=== PATIENT | male | born 1965 | race Caucasian/White ===

== ENCOUNTER 2017-08-27 12:21 | Emergency (ER) | payer BC ==
[2017-08-27 12:34] VITALS: BP 168/83; PULSE 108; RESP 20; TEMP 99.2; O2SAT 96
[2017-08-27 12:48] LABS: BILIRUBIN, URINE NEG (NEG); BLOOD, URINE TRACE (NEG); GLUCOSE,URINE NEG (NEG); KETONE, URINE NEG (NEG); NITRITE,URINE POS (NEG); PH, URINE 5.5 (5.0-8.5); URINE LEUKOCYTE ESTERASE LARGE (NEG)
[2017-08-27 12:57] LABS: BACTERIA, URINE MANY /hpf; SQUAMOUS EPITHELIAL CELL URINE 0-5 /hpf (0-5); URINE COLOR YELLOW (YELLW/STRAW)
[2017-08-27] MEDS ORDERED: AMLO2.5T PO (15:15)
[2017-08-27] MEDS ORDERED: HYDR12.57 PO (15:15)
[2017-08-27] MEDS ORDERED: ACIP20TA19 PO (15:15)
[2017-08-27] MEDS ORDERED: LISI2.5T3 PO (15:15)
[2017-08-27] MEDS ORDERED: SULFAMETHOXAZOLE-TRIMETHOPRIM DS 800-160 MG TAB PO ONE (15:30)
[2017-08-27] MEDS ORDERED: BACT800T5 PO (15:33)
--- NOTE | 2017-08-27 15:33 | PD ---
HPI Chief Complaint: Complaint Time Seen by Provider: 15:25 Travel History International Travel<30 days: No Contact w/Intl Traveler<30days: No Traveled to known affect area: No History of Present Illness HPI This 51-year-old male complaining of possible UTI. He has had urinary tract infections in the past. He has had urinary retention. 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 He has had recurrent bladder infections and says he usually responds well to Bactrim his been having frequency and dysuria. There has not been any vomiting. PFSH Past Medical History Diminished Hearing: No GERD: Yes Hypertension: Yes Tetanus Vaccination: < 5 Years Influenza Vaccination: No Past Surgical History Genitourinary Surgery: Yes (bladder ) Social History Alcohol Use: Yes (occ) Tobacco Use: No Substance Use: No Allergies-Medications (Allergen,Severity, Reaction): Coded Allergies: pseudoephedrine (Verified Allergy, Unknown, 08/27/17) Reported Meds & Prescriptions Reported Meds & Active Scripts Active Reported Aciphex (Rabeprazole Sodium) 20 Mg Tab 20 Mg PO DAILY Amlodipine (Amlodipine Besylate) 2.5 Mg Tab 2.5 Mg PO DAILY Hydrochlorothiazide 12.5 Mg Cap 12.5 Mg PO DAILY Lisinopril 2.5 Mg Tab 2.5 Mg PO DAILY Review of Systems General / Constitutional: No: Fever, Chills Eyes: No: Diploplia HENT: No: Headaches Cardiovascular: No: Chest Pain or Discomfort, Palpitations Gastrointestinal: No: Nausea, Vomiting Genitourinary: Positive: Urgency, Frequency, Dysuria Skin: No Rash Neurologic: No: Dizziness, Syncope Endocrine: No: Heat Intolerance Hematologic/Lymphatic: No: Easy Bruising Physical Exam Narrative GENERAL: Well-developed male SKIN: Focused skin assessment warm/dry. HEAD: Atraumatic. Normocephalic. EYES: Pupils equal and round. No scleral icterus. No injection or drainage. ENT: No nasal bleeding or discharge. Mucous membranes pink and moist. NECK: Trachea midline. No JVD. CARDIOVASCULAR: Regular rate and rhythm. No murmur appreciated. RESPIRATORY: No accessory muscle use. Clear to auscultation. Breath sounds equal bilaterally. GASTROINTESTINAL: Abdomen soft, non-tender, nondistended. Hepatic and splenic margins not palpable. MUSCULOSKELETAL: No obvious deformities. No clubbing. No cyanosis. No edema. NEUROLOGICAL: Awake and alert. No obvious cranial nerve deficits. Motor grossly within normal limits. Normal speech. PSYCHIATRIC: Appropriate mood and affect; insight and judgment normal. Data Data Last Documented VS Vital Signs Date Time Temp Pulse Resp B/P (MAP) Pulse Ox O2 Delivery O2 Flow Rate FiO2 08/27/17 15:11 18 08/27/17 12:34 99.2 108 168/83 (111) 96 Orders Orders Urinalysis - C+S If Indicated (08/27/17 12:34) Urine Culture (08/27/17 12:40) Sulfamet-Trimeth Ds 800-160 Mg (Bactrim (08/27/17 15:30) Labs Laboratory Tests Test 08/27/17 12:40 Urine Color YELLOW Urine Turbidity CLOUDY Urine pH 5.5 Urine Specific [place] 1.015 Urine Protein NEG mg/dL Urine Glucose (UA) NEG mg/dL Urine Ketones NEG mg/dL Urine Occult Blood TRACE Urine Nitrite POS Urine Bilirubin NEG Urine Leukocyte Esterase LARGE Urine RBC 3-5 /hpf Urine WBC 50-99 /hpf Urine Squamous Epithelial Cells 0-5 /hpf Urine Bacteria MANY /hpf Microscopic Urinalysis Comment CULTURE INDICATED MDM Medical Decision Making Medical Screen Exam Complete: Yes Emergency Medical Condition: Yes Medical Record Reviewed: Yes Differential Diagnosis Differential includes UTI, prostatitis, Narrative Course This gentleman has had ongoing care with a urologist and gets frequent UTIs. His urinalysis shows a urinary tract infection now. He'll be placed on Bactrim Diagnosis Primary Impression: Urinary tract infection Scripts Sulfamethoxazole-Trimethoprim (Bactrim DS) 800-160 Mg Tab 1 TAB PO BID for Infection for 14 Days, #28 TAB 0 Refills Prov: Marv Soto MD 08/27/17 Disposition: DISCHARGE HOME Condition: Stable Marv Soto MD Aug 27, 2017 15:33
== END 2017-08-27 15:56 | disposition home or self-care (01) ==
LOC: PHED 12:21
DX: N39.0 Urinary tract infection, site not specified (principal); B96.20 Unspecified Escherichia coli [E. coli] as the cause of diseases classified elsewhere; N31.9 Neuromuscular dysfunction of bladder, unspecified; I10 Essential (primary) hypertension; K21.9 Gastro-esophageal reflux disease without esophagitis; Z96.0 Presence of urogenital implants
CPT/HCPCS: 81001; 87077; 87086; 87186; 99283